=== PATIENT | female | born 1960 | race African-American/Black ===

== ENCOUNTER → 2018-02-07 | Outpatient (CLI) | payer BC ==
[~2018-02-07] MED LIST: 00186-0372-20; BYSTOLIC5 MG PO; FARXIGA10 PO; FARXIGA5 PO; FLOVENT 44MCG I13 GM IH; GLUCOPHAGE500 MG/TAB PO; MULTIPLE VITAMI1 CAP PO; NORVASC 5MG5 MG/TAB PO; PREDNISONE1 MG PO; PREMARIN 0.60.625 M1 PO; PRILOSEC 20MG20 MG PO; PROAIR HFA0.09 MG/AC IH; RT ADVAIR HFA 2312 G IH; RT SPIRIVA18 MCG IH; SINGULAIR 110 MG/TAB PO; VIT D PO; XOPENEX1.25 MG/0. IH; ZYRTEC 10MG10 MG PO
== END ==
LOC: MC.RAD 07:00
DX: Z12.31 Encounter for screening mammogram for malignant neoplasm of breast (principal)

== ENCOUNTER → 2020-06-10 | Outpatient (CLI) | payer BC | LOC: MC.RAD 14:05 | DX: Z12.31 Encounter for screening mammogram for malignant neoplasm of breast (principal) ==

== ENCOUNTER → 2023-10-30 | Outpatient (CLI) | payer BC | LOC: MC.RAD 08:43 | DX: Z12.31 Encounter for screening mammogram for malignant neoplasm of breast (principal) ==